=== PATIENT | male | born 1950 | race Caucasian/White ===

== ENCOUNTER 2021-01-11 11:02 | Inpatient (IN) | payer OTHER ==
[~2021-01-11] VITALS: Ht 157.5 cm; Wt 84.0 kg
[~2021-01-11 11:02] MED LIST: AUGMENTIN 875875 MG PO
[2021-01-11 12:15] VITALS: BP 110/47
[2021-01-11 13:10] LABS: HEMATOCRIT 35.4 % (42.0-52.0); MEAN CELL VOLUME 82.5 fl (80.0-94.0); MEAN CORPUSCULAR HGB 29.1 pg (27.0-31.0); MEAN CORPUSCULAR HGB CONC 35.3 g/dl (33.0-37.0); MEAN PLATELET VOLUME 9.9 fl (9.6-12.3); PLATELET COUNT AUTOMATED 243 10*3/uL (130-400); RED BLOOD COUNT 4.29 10*6/uL (4.50-5.90); RED CELL DISTRI WIDTH 12.8 % (0-14.5); WHITE BLOOD COUNT 23.7 10*3/uL (4.8-10.8)
[2021-01-11 13:29] LABS: ALBUMIN 2.5 gm/dl (3.1-4.5); ALKALINE PHOSPHATASE 124 U/L (45-117); BUN 24 mg/dl (7-24); CHLORIDE 102 mmol/L (98-107); CREATININE 1.38 mg/dL (0.70-1.30); POTASSIUM 2.8 mmol/L (3.5-5.1); SGOT/AST 28 IU/L (3-35); SGPT/ALT 34 U/L (12-78); SODIUM 136 mmol/L (136-145); TOTAL PROTEIN 6.7 gm/dL (6.4-8.2)
[2021-01-11] MEDS ORDERED: PROSCAR5 M1 PO (13:52)
[2021-01-11] MEDS ORDERED: JARDIANCE25 MG PO (13:53)
[2021-01-11] MEDS ORDERED: GLUCOPHAGE500 MG PO (13:53)
[2021-01-11] MEDS ORDERED: QUETIAPINE FUM100 M1 PO (13:54)
[2021-01-11] MEDS ORDERED: OMEPRAZOLE40 MG PO (13:54)
[2021-01-11 13:57] LABS: DOHLE BODIES FEW; PLATELET SUFFICIENCY NORMAL (NORMAL); SCHISTOCYTES FEW; TOTAL CELLS COUNTED 100 #CELLS
[2021-01-11 19:08] VITALS: BP 154/76
[2021-01-11 19:33] LABS: HEMATOCRIT 33.7 % (42.0-52.0); MEAN CELL VOLUME 82.2 fl (80.0-94.0); MEAN CORPUSCULAR HGB 29.5 pg (27.0-31.0); MEAN CORPUSCULAR HGB CONC 35.9 g/dl (33.0-37.0); PLATELET COUNT AUTOMATED 216 10*3/uL (130-400); RED CELL DISTRI WIDTH 12.8 % (0-14.5); WHITE BLOOD COUNT 22.9 10*3/uL (4.8-10.8)
[2021-01-11 19:49] LABS: ALBUMIN 2.2 gm/dl (3.1-4.5); ALKALINE PHOSPHATASE 122 U/L (45-117); BUN 17 mg/dl (7-24); CHLORIDE 108 mmol/L (98-107); CREATININE 0.91 mg/dL (0.70-1.30); POTASSIUM 3.2 mmol/L (3.5-5.1); SGOT/AST 30 IU/L (3-35); SGPT/ALT 32 U/L (12-78); SODIUM 140 mmol/L (136-145)
[2021-01-11 20:00] VITALS: BP 122/60
[2021-01-11 20:18] LABS: ARTERIAL BLOOD GAS PH 7.292 (7.35-7.45); ARTERIAL BLOOD GAS PO2 125.4 (80-90)
[2021-01-11 20:18] LABS: BILIRUBIN Negative (Negative); BLOOD Trace-Intact (Negative); CLARITY Clear (Clear); COLOR Yellow (Yellow); GLUCOSE 3+ (Negative); KETONE Negative (Negative); LEUKO ESTERASE Negative (Negative); NITRITE Negative (Negative); SPECIFIC GRAVITY 1.015 (1.001-1.030)
[2021-01-11 20:19] LABS: ABG BASE EXCESS -7.5 mmol/L (-2.0-2.0)
[2021-01-11 20:23] LABS: BURR CELLS MODERATE; PLATELET SUFFICIENCY NORMAL (NORMAL); TOTAL CELLS COUNTED 100 #CELLS
[2021-01-11 20:34] LABS: BACTERIA 2+; EPITHELIAL CELLS 0-2
[2021-01-11 22:00] VITALS: BP 95/50
[2021-01-12] VITALS (57 sets, daily range): BP systolic 90–149; BP diastolic 48–78
[2021-01-12 05:25] LABS: ALBUMIN 1.8 gm/dl (3.1-4.5); ALKALINE PHOSPHATASE 101 U/L (45-117); BUN 18 mg/dl (7-24); CHLORIDE 111 mmol/L (98-107); CREATININE 0.86 mg/dL (0.70-1.30); POTASSIUM 3.2 mmol/L (3.5-5.1); SGOT/AST 23 IU/L (3-35); SGPT/ALT 29 U/L (12-78); SODIUM 142 mmol/L (136-145); TOTAL PROTEIN 5.2 gm/dL (6.4-8.2)
[2021-01-12 06:11] LABS: HEMATOCRIT 29.3 % (42.0-52.0); MEAN CELL VOLUME 83.5 fl (80.0-94.0); MEAN CORPUSCULAR HGB 29.3 pg (27.0-31.0); MEAN CORPUSCULAR HGB CONC 35.2 g/dl (33.0-37.0); MEAN PLATELET VOLUME 10.7 fl (9.6-12.3); PLATELET COUNT AUTOMATED 211 10*3/uL (130-400); RED BLOOD COUNT 3.51 10*6/uL (4.50-5.90); RED CELL DISTRI WIDTH 13.2 % (0-14.5); WHITE BLOOD COUNT 15.2 10*3/uL (4.8-10.8)
[2021-01-12 07:41] LABS: BURR CELLS MODERATE; TOTAL CELLS COUNTED 100 #CELLS
[2021-01-12 07:42] LABS: PLATELET SUFFICIENCY NORMAL (NORMAL)
[2021-01-12 10:59] LABS: ARTERIAL BLOOD GAS PH 7.377 (7.35-7.45)
[2021-01-13] VITALS (54 sets, daily range): BP systolic 89–135; BP diastolic 40–65
[2021-01-13 04:39] LABS: ALBUMIN 1.6 gm/dl (3.1-4.5); BUN 26 mg/dl (7-24); CHLORIDE 111 mmol/L (98-107); CREATININE 0.81 mg/dL (0.70-1.30); POTASSIUM 3.3 mmol/L (3.5-5.1); SGOT/AST 31 IU/L (3-35); SGPT/ALT 32 U/L (12-78); SODIUM 141 mmol/L (136-145); TOTAL PROTEIN 5.2 gm/dL (6.4-8.2)
[2021-01-13 04:40] LABS: ALKALINE PHOSPHATASE 95 U/L (45-117)
[2021-01-13 05:01] LABS: MEAN CELL VOLUME 85.6 fl (80.0-94.0); MEAN CORPUSCULAR HGB 29.6 pg (27.0-31.0); MEAN CORPUSCULAR HGB CONC 34.5 g/dl (33.0-37.0); MEAN PLATELET VOLUME 10.7 fl (9.6-12.3); NUCLEATED RED BLOOD CELL 0.2 % (0.0-0.0); RED BLOOD COUNT 3.62 10*6/uL (4.50-5.90); RED CELL DISTRI WIDTH 14.1 % (0-14.5); WHITE BLOOD COUNT 15.6 10*3/uL (4.8-10.8)
[2021-01-13 05:08] LABS: PLATELET COUNT AUTOMATED 279 10*3/uL (130-400)
[2021-01-13 05:17] LABS: ATYPICAL LYMPHS 2 % (0-0); PLATELET SUFFICIENCY NORMAL (NORMAL); TOTAL CELLS COUNTED 100 #CELLS
[2021-01-13 05:18] LABS: BURR CELLS FEW; SCHISTOCYTES FEW
[2021-01-14] VITALS (43 sets, daily range): BP systolic 95–141; BP diastolic 40–58
[2021-01-14 05:30] LABS: ALBUMIN 1.5 gm/dl (3.1-4.5); ALKALINE PHOSPHATASE 86 U/L (45-117); BUN 25 mg/dl (7-24); CHLORIDE 109 mmol/L (98-107); CREATININE 0.77 mg/dL (0.70-1.30); POTASSIUM 3.2 mmol/L (3.5-5.1); SGOT/AST 29 IU/L (3-35); SGPT/ALT 35 U/L (12-78); SODIUM 142 mmol/L (136-145); TOTAL PROTEIN 5.2 gm/dL (6.4-8.2)
[2021-01-14 06:03] LABS: HEMATOCRIT 31.9 % (42.0-52.0); MEAN CELL VOLUME 85.3 fl (80.0-94.0); MEAN CORPUSCULAR HGB 28.9 pg (27.0-31.0); MEAN CORPUSCULAR HGB CONC 33.9 g/dl (33.0-37.0); MEAN PLATELET VOLUME 10.4 fl (9.6-12.3); PLATELET COUNT AUTOMATED 302 10*3/uL (130-400); RED BLOOD COUNT 3.74 10*6/uL (4.50-5.90); RED CELL DISTRI WIDTH 14.1 % (0-14.5)
[2021-01-14 07:31] LABS: MICROCYTOSIS SLIGHT; PLATELET SUFFICIENCY NORMAL (NORMAL); TOTAL CELLS COUNTED 100 #CELLS
[2021-01-14 07:32] LABS: TARGET CELLS FEW
[2021-01-14 07:33] LABS: SCHISTOCYTES FEW
[2021-01-14 07:46] LABS: ABG BASE EXCESS 1.7 mmol/L (-2.0-2.0); ARTERIAL BLOOD GAS PH 7.49 (7.35-7.45); ARTERIAL BLOOD GAS PO2 88.3 (80-90)
[2021-01-15] VITALS (34 sets, daily range): BP systolic 101–128; BP diastolic 44–76
[2021-01-15 05:59] LABS: ALBUMIN 1.5 gm/dl (3.1-4.5); ALKALINE PHOSPHATASE 74 U/L (45-117); BUN 21 mg/dl (7-24); CHLORIDE 109 mmol/L (98-107); CREATININE 0.47 mg/dL (0.70-1.30); POTASSIUM 3.5 mmol/L (3.5-5.1); SGOT/AST 20 IU/L (3-35); SGPT/ALT 26 U/L (12-78); SODIUM 142 mmol/L (136-145)
[2021-01-15 06:03] LABS: HEMATOCRIT 31.3 % (42.0-52.0); MEAN CELL VOLUME 86.9 fl (80.0-94.0); MEAN CORPUSCULAR HGB 29.2 pg (27.0-31.0); MEAN CORPUSCULAR HGB CONC 33.5 g/dl (33.0-37.0); MEAN PLATELET VOLUME 9.9 fl (9.6-12.3); NUCLEATED RED BLOOD CELL 0.1 % (0.0-0.0); PLATELET COUNT AUTOMATED 307 10*3/uL (130-400); RED CELL DISTRI WIDTH 14.2 % (0-14.5); WHITE BLOOD COUNT 15.6 10*3/uL (4.8-10.8)
[2021-01-15 07:34] LABS: TOTAL CELLS COUNTED 100 #CELLS
[2021-01-15 07:35] LABS: PLATELET SUFFICIENCY NORMAL (NORMAL); POLYCHROMASIA SLIGHT
[2021-01-15 11:12] LABS: INTERNATIONAL NORM RATIO 1.1 (2.0-3.5)
[2021-01-16] VITALS (74 sets, daily range): BP systolic 85–168; BP diastolic 37–69
[2021-01-16 05:14] LABS: ALBUMIN 1.8 gm/dl (3.1-4.5); ALKALINE PHOSPHATASE 83 U/L (45-117); BUN 16 mg/dl (7-24); CHLORIDE 108 mmol/L (98-107); CREATININE 0.46 mg/dL (0.70-1.30); POTASSIUM 3.6 mmol/L (3.5-5.1); SGOT/AST 20 IU/L (3-35); SGPT/ALT 19 U/L (12-78); SODIUM 141 mmol/L (136-145); TOTAL PROTEIN 5.1 gm/dL (6.4-8.2)
[2021-01-16 06:16] LABS: HEMATOCRIT 29.8 % (42.0-52.0); MEAN CELL VOLUME 88.2 fl (80.0-94.0); MEAN CORPUSCULAR HGB 29.3 pg (27.0-31.0); MEAN CORPUSCULAR HGB CONC 33.2 g/dl (33.0-37.0); MEAN PLATELET VOLUME 9.7 fl (9.6-12.3); PLATELET COUNT AUTOMATED 341 10*3/uL (130-400); RED BLOOD COUNT 3.38 10*6/uL (4.50-5.90); RED CELL DISTRI WIDTH 14.2 % (0-14.5); WHITE BLOOD COUNT 16.8 10*3/uL (4.8-10.8)
[2021-01-16 07:08] LABS: PLATELET SUFFICIENCY NORMAL (NORMAL); TOTAL CELLS COUNTED 100 #CELLS
[2021-01-17] VITALS (42 sets, daily range): BP systolic 91–172; BP diastolic 44–70
[2021-01-17 06:06] LABS: HEMATOCRIT 30.5 % (42.0-52.0); MEAN CELL VOLUME 88.9 fl (80.0-94.0); MEAN CORPUSCULAR HGB 29.2 pg (27.0-31.0); MEAN CORPUSCULAR HGB CONC 32.8 g/dl (33.0-37.0); MEAN PLATELET VOLUME 9.6 fl (9.6-12.3); PLATELET COUNT AUTOMATED 394 10*3/uL (130-400); RED BLOOD COUNT 3.43 10*6/uL (4.50-5.90); RED CELL DISTRI WIDTH 14.3 % (0-14.5); WHITE BLOOD COUNT 12.3 10*3/uL (4.8-10.8)
[2021-01-17 06:13] LABS: ALBUMIN 1.7 gm/dl (3.1-4.5); ALKALINE PHOSPHATASE 68 U/L (45-117); BUN 13 mg/dl (7-24); CHLORIDE 106 mmol/L (98-107); CREATININE 0.56 mg/dL (0.70-1.30); POTASSIUM 3.4 mmol/L (3.5-5.1); SGOT/AST 28 IU/L (3-35); SGPT/ALT 22 U/L (12-78); SODIUM 140 mmol/L (136-145); TOTAL PROTEIN 5.4 gm/dL (6.4-8.2)
[2021-01-17 07:39] LABS: PLATELET SUFFICIENCY NORMAL (NORMAL); TOTAL CELLS COUNTED 100 #CELLS
[2021-01-18] VITALS: BP 122/57
[2021-01-18 04:00] VITALS: BP 100/48
[2021-01-18 06:00] LABS: BASO % 0.3 % (0.0-1.0); EOS # 0.4 10*3/uL (0.0-0.4); EOS % 3.4 % (1.0-4.0); HEMATOCRIT 30.3 % (42.0-52.0); LYMPH # 2.4 10*3/uL (1.3-4.4); LYMPH % 21.3 % (27.0-41.0); MEAN CELL VOLUME 90.2 fl (80.0-94.0); MEAN CORPUSCULAR HGB 29.2 pg (27.0-31.0); MEAN CORPUSCULAR HGB CONC 32.3 g/dl (33.0-37.0); MEAN PLATELET VOLUME 9.8 fl (9.6-12.3); MONO # 0.7 10*3/uL (0.1-1.0); MONO % 6.4 % (3.0-9.0); NEUT # 7.3 10*3/uL (2.3-7.9); NEUT % 66.5 % (47.0-73.0); PLATELET COUNT AUTOMATED 363 10*3/uL (130-400); RED BLOOD COUNT 3.36 10*6/uL (4.50-5.90); RED CELL DISTRI WIDTH 14.5 % (0-14.5)
[2021-01-18 06:18] LABS: ALBUMIN 1.5 gm/dl (3.1-4.5); ALKALINE PHOSPHATASE 66 U/L (45-117); BUN 13 mg/dl (7-24); CHLORIDE 111 mmol/L (98-107); CREATININE 0.36 mg/dL (0.70-1.30); POTASSIUM 3.5 mmol/L (3.5-5.1); SGOT/AST 21 IU/L (3-35); SGPT/ALT 22 U/L (12-78); SODIUM 144 mmol/L (136-145); TOTAL PROTEIN 5.3 gm/dL (6.4-8.2)
[2021-01-18 07:28] VITALS: BP 120/55
[2021-01-18 12:00] VITALS: BP 104/45
[2021-01-18 16:00] VITALS: BP 130/60
[2021-01-18 20:00] VITALS: BP 131/55
[2021-01-19] VITALS: BP 117/48
[2021-01-19 04:00] VITALS: BP 135/62
[2021-01-19 06:06] LABS: ALBUMIN 1.6 gm/dl (3.1-4.5); BUN 13 mg/dl (7-24); CHLORIDE 108 mmol/L (98-107); CREATININE 0.37 mg/dL (0.70-1.30); POTASSIUM 3.7 mmol/L (3.5-5.1); SGOT/AST 25 IU/L (3-35); SGPT/ALT 24 U/L (12-78); SODIUM 143 mmol/L (136-145)
[2021-01-19 06:08] LABS: ALKALINE PHOSPHATASE 69 U/L (45-117); TOTAL PROTEIN 5.6 gm/dL (6.4-8.2)
[2021-01-19 06:10] LABS: BASO % 0.2 % (0.0-1.0); EOS # 0.3 10*3/uL (0.0-0.4); EOS % 2.6 % (1.0-4.0); LYMPH % 18.6 % (27.0-41.0); MEAN CELL VOLUME 90.6 fl (80.0-94.0); MEAN CORPUSCULAR HGB 29.2 pg (27.0-31.0); MEAN CORPUSCULAR HGB CONC 32.3 g/dl (33.0-37.0); MEAN PLATELET VOLUME 9.6 fl (9.6-12.3); MONO # 0.7 10*3/uL (0.1-1.0); MONO % 5.9 % (3.0-9.0); NEUT # 7.8 10*3/uL (2.3-7.9); NEUT % 71.2 % (47.0-73.0); PLATELET COUNT AUTOMATED 440 10*3/uL (130-400); RED BLOOD COUNT 3.42 10*6/uL (4.50-5.90); RED CELL DISTRI WIDTH 14.6 % (0-14.5); WHITE BLOOD COUNT 10.9 10*3/uL (4.8-10.8)
[2021-01-19 08:00] VITALS: BP 118/62
[2021-01-19 12:00] VITALS: BP 136/45
[2021-01-19 16:00] VITALS: BP 140/50
[2021-01-19 20:00] VITALS: BP 136/70
[2021-01-20] VITALS: BP 102/50
[2021-01-20 04:00] VITALS: BP 107/50
[2021-01-20 06:14] LABS: BASO % 0.3 % (0.0-1.0); EOS # 0.3 10*3/uL (0.0-0.4); HEMATOCRIT 30.3 % (42.0-52.0); LYMPH # 2.2 10*3/uL (1.3-4.4); LYMPH % 21.5 % (27.0-41.0); MEAN CELL VOLUME 90.4 fl (80.0-94.0); MEAN PLATELET VOLUME 9.4 fl (9.6-12.3); MONO # 0.7 10*3/uL (0.1-1.0); MONO % 6.8 % (3.0-9.0); NEUT # 6.8 10*3/uL (2.3-7.9); NEUT % 67.4 % (47.0-73.0); PLATELET COUNT AUTOMATED 519 10*3/uL (130-400); RED BLOOD COUNT 3.35 10*6/uL (4.50-5.90); RED CELL DISTRI WIDTH 14.2 % (0-14.5); WHITE BLOOD COUNT 10.1 10*3/uL (4.8-10.8)
[2021-01-20 06:29] LABS: CHLORIDE 107 mmol/L (98-107); POTASSIUM 3.6 mmol/L (3.5-5.1); SODIUM 144 mmol/L (136-145)
[2021-01-20 06:35] LABS: ALBUMIN 1.5 gm/dl (3.1-4.5); ALKALINE PHOSPHATASE 60 U/L (45-117); BUN 13 mg/dl (7-24); CREATININE 0.35 mg/dL (0.70-1.30); SGOT/AST 20 IU/L (3-35); SGPT/ALT 21 U/L (12-78); TOTAL PROTEIN 5.6 gm/dL (6.4-8.2)
[2021-01-20 08:00] VITALS: BP 153/70
[2021-01-20 12:00] VITALS: BP 130/65
[2021-01-20 16:00] VITALS: BP 120/57
[2021-01-20 20:00] VITALS: BP 156/68
[2021-01-21] VITALS: BP 164/69
[2021-01-21 04:00] VITALS: BP 92/52
[2021-01-21 06:13] LABS: ALBUMIN 1.8 gm/dl (3.1-4.5); BUN 13 mg/dl (7-24); CHLORIDE 103 mmol/L (98-107); POTASSIUM 3.5 mmol/L (3.5-5.1); SODIUM 142 mmol/L (136-145)
[2021-01-21 06:16] LABS: BASO % 0.4 % (0.0-1.0); EOS # 0.2 10*3/uL (0.0-0.4); EOS % 2.7 % (1.0-4.0); LYMPH # 2.4 10*3/uL (1.3-4.4); MEAN CELL VOLUME 90.6 fl (80.0-94.0); MEAN CORPUSCULAR HGB 29.4 pg (27.0-31.0); MEAN CORPUSCULAR HGB CONC 32.4 g/dl (33.0-37.0); MEAN PLATELET VOLUME 9.6 fl (9.6-12.3); MONO # 0.6 10*3/uL (0.1-1.0); MONO % 7.3 % (3.0-9.0); NEUT # 4.9 10*3/uL (2.3-7.9); NEUT % 59.9 % (47.0-73.0); PLATELET COUNT AUTOMATED 570 10*3/uL (130-400); RED CELL DISTRI WIDTH 13.9 % (0-14.5); WHITE BLOOD COUNT 8.1 10*3/uL (4.8-10.8)
[2021-01-21 06:17] LABS: ALKALINE PHOSPHATASE 57 U/L (45-117); SGOT/AST 15 IU/L (3-35); SGPT/ALT 17 U/L (12-78); TOTAL PROTEIN 5.6 gm/dL (6.4-8.2)
[2021-01-21 08:00] VITALS: BP 130/70
[2021-01-21 12:00] VITALS: BP 127/64
[2021-01-21 16:00] VITALS: BP 147/63
[2021-01-21 20:00] VITALS: BP 144/61
[2021-01-22] VITALS: BP 108/49
[2021-01-22 04:00] VITALS: BP 117/51
[2021-01-22 06:38] LABS: BASO # 0.1 10*3/uL (0.0-0.1); BASO % 0.6 % (0.0-1.0); EOS # 0.2 10*3/uL (0.0-0.4); EOS % 2.2 % (1.0-4.0); HEMATOCRIT 31.4 % (42.0-52.0); LYMPH # 2.5 10*3/uL (1.3-4.4); LYMPH % 27.1 % (27.0-41.0); MEAN CELL VOLUME 90.2 fl (80.0-94.0); MEAN CORPUSCULAR HGB 29.3 pg (27.0-31.0); MEAN CORPUSCULAR HGB CONC 32.5 g/dl (33.0-37.0); MEAN PLATELET VOLUME 9.5 fl (9.6-12.3); MONO # 0.8 10*3/uL (0.1-1.0); MONO % 8.1 % (3.0-9.0); NEUT # 5.8 10*3/uL (2.3-7.9); NEUT % 61.5 % (47.0-73.0); PLATELET COUNT AUTOMATED 699 10*3/uL (130-400); RED BLOOD COUNT 3.48 10*6/uL (4.50-5.90); RED CELL DISTRI WIDTH 13.7 % (0-14.5); WHITE BLOOD COUNT 9.4 10*3/uL (4.8-10.8)
[2021-01-22 06:41] LABS: ALKALINE PHOSPHATASE 66 U/L (45-117); BUN 11 mg/dl (7-24); CHLORIDE 100 mmol/L (98-107); CREATININE 0.42 mg/dL (0.70-1.30); POTASSIUM 3.5 mmol/L (3.5-5.1); SGOT/AST 17 IU/L (3-35); SGPT/ALT 18 U/L (12-78); SODIUM 138 mmol/L (136-145); TOTAL PROTEIN 6.2 gm/dL (6.4-8.2)
[2021-01-22 08:00] VITALS: BP 130/60
[2021-01-22 12:00] VITALS: BP 126/55
[2021-01-22 16:00] VITALS: BP 112/55
[2021-01-22 20:00] VITALS: BP 131/50
[2021-01-23] VITALS: BP 124/48
[2021-01-23 05:41] LABS: ALBUMIN 1.9 gm/dl (3.1-4.5); BUN 15 mg/dl (7-24); CHLORIDE 102 mmol/L (98-107); POTASSIUM 3.9 mmol/L (3.5-5.1); SODIUM 137 mmol/L (136-145)
[2021-01-23 05:44] LABS: ALKALINE PHOSPHATASE 54 U/L (45-117); CREATININE 0.42 mg/dL (0.70-1.30); SGOT/AST 16 IU/L (3-35); SGPT/ALT 16 U/L (12-78)
[2021-01-23 06:06] LABS: BASO # 0.1 10*3/uL (0.0-0.1); BASO % 0.7 % (0.0-1.0); EOS # 0.3 10*3/uL (0.0-0.4); HEMATOCRIT 31.2 % (42.0-52.0); LYMPH # 2.6 10*3/uL (1.3-4.4); LYMPH % 30.9 % (27.0-41.0); MEAN CELL VOLUME 89.4 fl (80.0-94.0); MEAN CORPUSCULAR HGB 29.5 pg (27.0-31.0); MEAN PLATELET VOLUME 9.6 fl (9.6-12.3); MONO # 0.7 10*3/uL (0.1-1.0); MONO % 8.7 % (3.0-9.0); NEUT # 4.8 10*3/uL (2.3-7.9); PLATELET COUNT AUTOMATED 682 10*3/uL (130-400); RED BLOOD COUNT 3.49 10*6/uL (4.50-5.90); RED CELL DISTRI WIDTH 13.6 % (0-14.5); WHITE BLOOD COUNT 8.6 10*3/uL (4.8-10.8)
[2021-01-23 08:00] VITALS: BP 101/51
[2021-01-23 12:00] VITALS: BP 109/56
[2021-01-23 16:00] VITALS: BP 128/68
[2021-01-23 20:00] VITALS: BP 117/58
[2021-01-24] VITALS: BP 105/53
[2021-01-24 06:51] LABS: BASO # 0.1 10*3/uL (0.0-0.1); BASO % 1.1 % (0.0-1.0); EOS # 0.2 10*3/uL (0.0-0.4); EOS % 2.8 % (1.0-4.0); LYMPH # 3.2 10*3/uL (1.3-4.4); LYMPH % 42.4 % (27.0-41.0); MEAN CELL VOLUME 88.6 fl (80.0-94.0); MEAN CORPUSCULAR HGB 28.9 pg (27.0-31.0); MEAN CORPUSCULAR HGB CONC 32.6 g/dl (33.0-37.0); MEAN PLATELET VOLUME 9.4 fl (9.6-12.3); MONO # 0.8 10*3/uL (0.1-1.0); NEUT # 3.2 10*3/uL (2.3-7.9); NEUT % 42.8 % (47.0-73.0); PLATELET COUNT AUTOMATED 688 10*3/uL (130-400); RED CELL DISTRI WIDTH 13.6 % (0-14.5); WHITE BLOOD COUNT 7.5 10*3/uL (4.8-10.8)
[2021-01-24 07:02] LABS: BUN 9 mg/dl (7-24); CHLORIDE 103 mmol/L (98-107); CREATININE 0.52 mg/dL (0.70-1.30); POTASSIUM 4.4 mmol/L (3.5-5.1); SODIUM 137 mmol/L (136-145)
[2021-01-24 08:00] VITALS: BP 121/75
[2021-01-24 12:00] VITALS: BP 102/69
[2021-01-24] MEDS ORDERED: Duragesic 50 M50 MCG T (12:45)
[2021-01-24] MEDS ORDERED: AUGMENTIN 875875 MG PO (12:49)
[2021-01-24] MEDS ORDERED: COLACE100 MG PO (12:52)
[2021-01-24 16:00] VITALS: BP 112/73
== END 2021-01-24 18:42 | DRG 853 ==
LOC: LAB 11:02 → ICCU 12:05 → 4E 12:05 → ICCU 17:24 → 4E 01-23 13:47 → ICCU 01-23 13:59 → 4E 01-23 14:17
PROVIDERS: Internal Medicine; Internal Medicine Critical Care Medicine; Nurse Anesthetist, Certified Registered; Social Worker Clinical; Student in an Organized Health Care Education/Training Program; ADMIT Internal Medicine; ATTEND Internal Medicine
PROC: 0JB70ZZ Excision of Back Subcutaneous Tissue and Fascia, Open Approach (ICD-10-PCS; principal; 2021-01-11)
PROC: 0KBM0ZZ Excision of Perineum Muscle, Open Approach (ICD-10-PCS; 2021-01-11)
PROC: 5A1955Z Respiratory Ventilation, Greater than 96 Consecutive Hours (ICD-10-PCS; 2021-01-11)
PROC: 0BH17EZ Insertion of Endotracheal Airway into Trachea, Via Natural or Artificial Opening (ICD-10-PCS; 2021-01-11)
PROC: 03HY33Z Insertion of Infusion Device into Upper Artery, Percutaneous Approach (ICD-10-PCS; 2021-01-11)
PROC: B34JZZZ Ultrasonography of Left Upper Extremity Arteries (ICD-10-PCS; 2021-01-11)
PROC: 02HV33Z Insertion of Infusion Device into Superior Vena Cava, Percutaneous Approach (ICD-10-PCS; 2021-01-12)
PROC: B548ZZA Ultrasonography of Superior Vena Cava, Guidance (ICD-10-PCS; 2021-01-12)
PROC: 0JB70ZZ Excision of Back Subcutaneous Tissue and Fascia, Open Approach (ICD-10-PCS; 2021-01-15)
PROC: 0D1N4Z4 Bypass Sigmoid Colon to Cutaneous, Percutaneous Endoscopic Approach (ICD-10-PCS; 2021-01-15)
PROC: BD1BYZZ Fluoroscopy of Mouth/Oropharynx using Other Contrast (ICD-10-PCS; 2021-01-23)
DX: A41.9 Sepsis, unspecified organism (principal); N17.0 Acute kidney failure with tubular necrosis; M72.6 Necrotizing fasciitis; E43 Unspecified severe protein-calorie malnutrition; R65.21 Severe sepsis with septic shock; J96.90 Respiratory failure, unspecified, unspecified whether with hypoxia or hypercapnia; L03.317 Cellulitis of buttock; B37.0 Candidal stomatitis; Z20.822 Contact with and (suspected) exposure to COVID-19; M54.5 Low back pain; N49.3 Fournier gangrene; L02.32 Furuncle of buttock; E87.6 Hypokalemia; G89.29 Other chronic pain; E83.39 Other disorders of phosphorus metabolism; D64.9 Anemia, unspecified; F01.50 Vascular dementia, unspecified severity, without behavioral disturbance, psychotic disturbance, mood disturbance, and anxiety; E11.65 Type 2 diabetes mellitus with hyperglycemia; E66.9 Obesity, unspecified; R19.7 Diarrhea, unspecified; N40.1 Benign prostatic hyperplasia with lower urinary tract symptoms; K21.9 Gastro-esophageal reflux disease without esophagitis; E78.2 Mixed hyperlipidemia; I95.9 Hypotension, unspecified; Z79.1 Long term (current) use of non-steroidal anti-inflammatories (NSAID); Z79.84 Long term (current) use of oral hypoglycemic drugs; Z68.34 Body mass index [BMI] 34.0-34.9, adult; Z79.899 Other long term (current) drug therapy; Z87.820 Personal history of traumatic brain injury

== ENCOUNTER → 2021-02-20 | Outpatient (CLI) | payer OTHER ==
[~2021-02-20] MED LIST changes: +COLACE100 MG PO; +Duragesic 50 M50 MCG T; +GLUCOPHAGE500 MG PO; +JARDIANCE25 MG PO; +OMEPRAZOLE40 MG PO; +PROSCAR5 M1 PO; +QUETIAPINE FUM100 M1 PO
== END ==
LOC: WOUNDCARE 01:34
PROVIDERS: ATTEND Surgery
DX: T81.89XA Other complications of procedures, not elsewhere classified, initial encounter (principal); N49.3 Fournier gangrene; E11.9 Type 2 diabetes mellitus without complications; K21.9 Gastro-esophageal reflux disease without esophagitis; N40.0 Benign prostatic hyperplasia without lower urinary tract symptoms; Z98.890 Other specified postprocedural states; Z79.899 Other long term (current) drug therapy; Y83.8 Other surgical procedures as the cause of abnormal reaction of the patient, or of later complication, without mention of misadventure at the time of the procedure; Y92.238 Other place in hospital as the place of occurrence of the external cause

== ENCOUNTER → 2021-02-27 | Outpatient (CLI) | payer OTHER | LOC: WOUNDCARE 01:03 | PROVIDERS: ATTEND Surgery | DX: N49.3 Fournier gangrene (principal); E11.9 Type 2 diabetes mellitus without complications; K21.9 Gastro-esophageal reflux disease without esophagitis; N40.0 Benign prostatic hyperplasia without lower urinary tract symptoms; Z98.890 Other specified postprocedural states; Z79.899 Other long term (current) drug therapy; Y83.8 Other surgical procedures as the cause of abnormal reaction of the patient, or of later complication, without mention of misadventure at the time of the procedure ==

== ENCOUNTER → 2021-03-06 | Outpatient (CLI) | payer OTHER | LOC: WOUNDCARE 00:40 | PROVIDERS: ATTEND Surgery | DX: N49.3 Fournier gangrene (principal); E11.9 Type 2 diabetes mellitus without complications; K21.9 Gastro-esophageal reflux disease without esophagitis; N40.0 Benign prostatic hyperplasia without lower urinary tract symptoms; Z98.890 Other specified postprocedural states; Z79.899 Other long term (current) drug therapy; Y83.8 Other surgical procedures as the cause of abnormal reaction of the patient, or of later complication, without mention of misadventure at the time of the procedure ==

== ENCOUNTER → 2021-03-13 | Outpatient (CLI) | payer OTHER | LOC: WOUNDCARE 00:38 | PROVIDERS: ATTEND Surgery | DX: M72.6 Necrotizing fasciitis (principal); N49.3 Fournier gangrene; E11.9 Type 2 diabetes mellitus without complications; K21.9 Gastro-esophageal reflux disease without esophagitis; N40.0 Benign prostatic hyperplasia without lower urinary tract symptoms; Z79.899 Other long term (current) drug therapy; Z98.890 Other specified postprocedural states; Y83.8 Other surgical procedures as the cause of abnormal reaction of the patient, or of later complication, without mention of misadventure at the time of the procedure ==

== ENCOUNTER → 2021-03-20 | Outpatient (CLI) | payer OTHER | LOC: WOUNDCARE 01:29 | PROVIDERS: ATTEND Surgery | DX: M72.6 Necrotizing fasciitis (principal); N49.3 Fournier gangrene; E11.9 Type 2 diabetes mellitus without complications; K21.9 Gastro-esophageal reflux disease without esophagitis; N40.0 Benign prostatic hyperplasia without lower urinary tract symptoms; Z79.899 Other long term (current) drug therapy; Z98.890 Other specified postprocedural states ==

== ENCOUNTER → 2021-03-27 | Outpatient (CLI) | payer OTHER | LOC: WOUNDCARE 01:36 | PROVIDERS: ATTEND Surgery | DX: M72.6 Necrotizing fasciitis (principal); N49.3 Fournier gangrene; E11.9 Type 2 diabetes mellitus without complications; K21.9 Gastro-esophageal reflux disease without esophagitis; N40.0 Benign prostatic hyperplasia without lower urinary tract symptoms; Z79.899 Other long term (current) drug therapy; Z98.890 Other specified postprocedural states ==

== ENCOUNTER → 2021-04-10 | Outpatient (CLI) | payer OTHER | LOC: WOUNDCARE 02:48 | PROVIDERS: ATTEND Nurse Practitioner Family | DX: M72.6 Necrotizing fasciitis (principal); N49.3 Fournier gangrene; E11.9 Type 2 diabetes mellitus without complications; K21.9 Gastro-esophageal reflux disease without esophagitis; N40.0 Benign prostatic hyperplasia without lower urinary tract symptoms; Z79.899 Other long term (current) drug therapy; Z98.890 Other specified postprocedural states ==

== ENCOUNTER → 2021-07-02 | Outpatient (CLI) | payer OTHER | END | disposition home or self-care (01) | LOC: US 08:30 | PROVIDERS: ATTEND Family Medicine | DX: K80.20 Calculus of gallbladder without cholecystitis without obstruction (principal) ==

== ENCOUNTER → 2021-08-07 | Outpatient (CLI) | payer OTHER ==
[~2021-08-07] MED LIST changes: +ASPIRIN ADULT L81 M1 PO; +ATORVASTATIN CA10 M1 PO; +DOCUSATE SOD100 MG PO; +HYDROCODONE-AC1 EAC1 PO; +LISINOPRIL5 MG PO; +METOPROLOL SUCC25 M2 PO; +TAMSULOSIN HCL0.4 MG PO; +ZOFRAN4 MG PO
== END ==
LOC: WOUNDCARE 00:44
PROVIDERS: ATTEND Surgery
DX: T81.32XA Disruption of internal operation (surgical) wound, not elsewhere classified, initial encounter (principal); E11.9 Type 2 diabetes mellitus without complications; M72.6 Necrotizing fasciitis; K21.9 Gastro-esophageal reflux disease without esophagitis; N40.0 Benign prostatic hyperplasia without lower urinary tract symptoms; Z79.899 Other long term (current) drug therapy; Z98.890 Other specified postprocedural states; Y83.8 Other surgical procedures as the cause of abnormal reaction of the patient, or of later complication, without mention of misadventure at the time of the procedure; Y92.238 Other place in hospital as the place of occurrence of the external cause

== ENCOUNTER → 2021-08-21 | Outpatient (CLI) | payer OTHER | END | disposition home or self-care (01) | LOC: WOUNDCARE 00:36 | PROVIDERS: ATTEND Surgery | DX: T81.32XD Disruption of internal operation (surgical) wound, not elsewhere classified, subsequent encounter (principal); E11.9 Type 2 diabetes mellitus without complications; N40.0 Benign prostatic hyperplasia without lower urinary tract symptoms; M72.6 Necrotizing fasciitis; K21.9 Gastro-esophageal reflux disease without esophagitis; F17.210 Nicotine dependence, cigarettes, uncomplicated; Z43.3 Encounter for attention to colostomy; Y83.8 Other surgical procedures as the cause of abnormal reaction of the patient, or of later complication, without mention of misadventure at the time of the procedure ==

== ENCOUNTER → 2023-06-02 | Outpatient (CLI) | payer OTHER | END | disposition home or self-care (01) | LOC: WOUNDCARE 04:29 | PROVIDERS: ATTEND Nurse Practitioner Family | DX: L89.323 Pressure ulcer of left buttock, stage 3 (principal); L89.313 Pressure ulcer of right buttock, stage 3; E11.9 Type 2 diabetes mellitus without complications; R32 Unspecified urinary incontinence; R26.89 Other abnormalities of gait and mobility; N40.0 Benign prostatic hyperplasia without lower urinary tract symptoms; K21.9 Gastro-esophageal reflux disease without esophagitis; F17.200 Nicotine dependence, unspecified, uncomplicated ==

== ENCOUNTER → 2023-06-09 | Outpatient (CLI) | payer OTHER, MEDICAID | END | disposition home or self-care (01) | LOC: WOUNDCARE 00:36 | PROVIDERS: ATTEND Nurse Practitioner Family | DX: L89.313 Pressure ulcer of right buttock, stage 3 (principal); L89.323 Pressure ulcer of left buttock, stage 3; E11.9 Type 2 diabetes mellitus without complications; R26.89 Other abnormalities of gait and mobility; R32 Unspecified urinary incontinence; K21.9 Gastro-esophageal reflux disease without esophagitis; N40.0 Benign prostatic hyperplasia without lower urinary tract symptoms; F17.290 Nicotine dependence, other tobacco product, uncomplicated; Z79.84 Long term (current) use of oral hypoglycemic drugs ==

== ENCOUNTER → 2023-07-07 | Outpatient (CLI) | payer OTHER, MEDICAID | END | disposition home or self-care (01) | LOC: WOUNDCARE 04:15 | PROVIDERS: ATTEND Nurse Practitioner Family | DX: L89.313 Pressure ulcer of right buttock, stage 3 (principal); L89.323 Pressure ulcer of left buttock, stage 3; R26.89 Other abnormalities of gait and mobility; R32 Unspecified urinary incontinence; E11.9 Type 2 diabetes mellitus without complications; N40.0 Benign prostatic hyperplasia without lower urinary tract symptoms; K21.9 Gastro-esophageal reflux disease without esophagitis; F17.210 Nicotine dependence, cigarettes, uncomplicated; Z79.84 Long term (current) use of oral hypoglycemic drugs ==

== ENCOUNTER → 2023-07-14 | Outpatient (CLI) | payer OTHER, MEDICAID | END | disposition home or self-care (01) | LOC: WOUNDCARE 02:23 | PROVIDERS: ATTEND Nurse Practitioner Family | DX: L89.323 Pressure ulcer of left buttock, stage 3 (principal); L89.313 Pressure ulcer of right buttock, stage 3; E11.9 Type 2 diabetes mellitus without complications; R32 Unspecified urinary incontinence; R26.89 Other abnormalities of gait and mobility; N40.0 Benign prostatic hyperplasia without lower urinary tract symptoms; I10 Essential (primary) hypertension; J44.9 Chronic obstructive pulmonary disease, unspecified; K21.9 Gastro-esophageal reflux disease without esophagitis; F17.200 Nicotine dependence, unspecified, uncomplicated ==

== ENCOUNTER → 2024-04-21 | Outpatient (CLI) | payer OTHER | END | disposition home or self-care (01) | LOC: WOUNDCARE 02:21 | PROVIDERS: ATTEND Nurse Practitioner Family | DX: L89.153 Pressure ulcer of sacral region, stage 3 (principal); L89.320 Pressure ulcer of left buttock, unstageable; E11.52 Type 2 diabetes mellitus with diabetic peripheral angiopathy with gangrene; N49.3 Fournier gangrene; N40.0 Benign prostatic hyperplasia without lower urinary tract symptoms; I10 Essential (primary) hypertension; R26.89 Other abnormalities of gait and mobility; R32 Unspecified urinary incontinence; E55.9 Vitamin D deficiency, unspecified; J44.9 Chronic obstructive pulmonary disease, unspecified; K21.9 Gastro-esophageal reflux disease without esophagitis; F32.A Depression, unspecified; F17.210 Nicotine dependence, cigarettes, uncomplicated; F17.290 Nicotine dependence, other tobacco product, uncomplicated; Z95.818 Presence of other cardiac implants and grafts; Z99.3 Dependence on wheelchair; Z79.84 Long term (current) use of oral hypoglycemic drugs; Z79.899 Other long term (current) drug therapy; Z93.3 Colostomy status ==

== ENCOUNTER → 2024-04-26 | Outpatient (CLI) | payer OTHER | END | disposition home or self-care (01) | LOC: WOUNDCARE 01:10 | PROVIDERS: ATTEND Nurse Practitioner Family | DX: L89.153 Pressure ulcer of sacral region, stage 3 (principal); L89.320 Pressure ulcer of left buttock, unstageable; E11.52 Type 2 diabetes mellitus with diabetic peripheral angiopathy with gangrene; N49.3 Fournier gangrene; I10 Essential (primary) hypertension; N40.0 Benign prostatic hyperplasia without lower urinary tract symptoms; R32 Unspecified urinary incontinence; R26.89 Other abnormalities of gait and mobility; E55.9 Vitamin D deficiency, unspecified; J44.9 Chronic obstructive pulmonary disease, unspecified; K21.9 Gastro-esophageal reflux disease without esophagitis; F32.A Depression, unspecified; F17.210 Nicotine dependence, cigarettes, uncomplicated; F17.290 Nicotine dependence, other tobacco product, uncomplicated; Z95.818 Presence of other cardiac implants and grafts; Z93.3 Colostomy status; Z99.3 Dependence on wheelchair; Z79.84 Long term (current) use of oral hypoglycemic drugs; Z79.899 Other long term (current) drug therapy ==